=== PATIENT | male | born 1955 | race Caucasian/White ===

== ENCOUNTER 2018-04-13 13:57 | Inpatient (IN) | payer MEDICAID ==
[~2018-04-13] VITALS: Ht 180.3 cm; Wt 128.6 kg
[2018-04-13 14:40] LABS: Urine WBC None Seen /hpf (0 - 3)
[2018-04-13 14:59] LABS: Basophils # (auto) 0 uL; Basophils % (auto) 0.5 % (0.0-2.0); Eosinophils # (auto) 0.2 uL; Eosinophils % (auto) 2.8 % (0.0-7.0); Hematocrit 39.3 % (41.0-53.0); Hemoglobin 13.5 g/dL (13.5-17.5); Lymphocytes # (auto) 1.6 uL; Mean Corpuscular Hemoglobin 32.1 pg (28.0-32.0); Mean Corpuscular Hgb Conc. 34.4 g/dL (32.0-36.0); Mean Corpuscular Volume 93.3 fL (80.0-100.0); Monocytes # (auto) 1.1 uL; Monocytes % (auto) 12.9 % (0.0-12.0); Neutrophils # (auto) 5.8 uL; Neutrophils % (auto) 65.8 % (37.0-80.0); Nucleated Red Blood Cells % 0.1 %; Platelet Count (auto) 277 10^3/uL (140-450); Red Blood Cells 4.22 10^6/uL (4.5-5.90); White Blood Cell 8.9 10^3/uL (4.4-10.8)
[2018-04-13 15:11] LABS: Urine Bacteria NONE SEEN /hpf (None Seen); Urine Blood Negative /uL (Negative); Urine Specific Gravity 1.018 (1.001-1.035)
[2018-04-13 15:14] LABS: INR 0.94 (0.9-1.15); Partial Thromboplastin Time 28.5 sec (23.78-33.04); Prothrombin Time 10.1 sec (9.27-12.13)
[2018-04-13 15:31] LABS: Albumin 3.7 g/dL (3.4-5.0); Calcium 8.8 mg/dL (8.5-10.1); Potassium 3.9 mmol/L (3.5-5.1)
[2018-04-13 15:45] LABS: BUN/Creatinine Ratio 12.3
[2018-04-13 15:47] LABS: Bilirubin, Total 0.4 mg/dL (0.2-1.0); Total Protein 7.3 g/dL (6.4-8.2)
[2018-04-13] MEDS ORDERED: SODIUM CHLORIDE 0.9% 1,000 ML IVB ONE (16:56)
[2018-04-13] MEDS ORDERED: PROMETHAZINE HCL 25 MG/ML 1ML IV PRN (17:00)
[2018-04-13] MEDS ORDERED: MEPERIDINE HCL (25 MG/ML) 1ML VIAL IV ONE (17:00)
[2018-04-13] MEDS ORDERED: PROMETHAZINE HCL 25 MG/ML 1ML ONE (17:08)
[2018-04-13] MEDS ORDERED: PROMETHAZINE HCL 25 MG/ML 1ML IV ONE (17:30)
[2018-04-13] MEDS ORDERED: LORazepam 0.5 MG TAB PO PRN (18:30)
[2018-04-13] MEDS ORDERED: NITROGLYCERIN 0.4 MG SL TAB SL PRN (18:30)
[2018-04-13] MEDS ORDERED: ONDANSETRON HCL 4 MG/2 ML VIAL IV PRN (18:30)
[2018-04-13] MEDS ORDERED: cefTRIAXone 1GM/10ml IVPUSH 10 ML IV ONE (18:30)
[2018-04-13] MEDS ORDERED: HYDROcodone-ACET 5/325MG TAB PO PRN (18:30)
[2018-04-13] MEDS ORDERED: TEMAZEPAM 15 MG CAP PO PRN (18:30)
[2018-04-13] MEDS ORDERED: ACETAMINOPHEN 500 MG TAB PO PRN (18:30)
[2018-04-13] MEDS: KETOROLAC TROMETH 30 MG/ML 1ML VIAL IV PRN (19:32)
[2018-04-13 20:23] VITALS: BP 136/76
[2018-04-13 20:45] VITALS: BP 127/65
[2018-04-13] MEDS: FAMOTIDINE 20 MG TAB PO SCH (22:27)
[2018-04-13 23:49] LABS: INR 0.99 (0.9-1.15); Prothrombin Time 10.6 sec (9.27-12.13)
[2018-04-14] MEDS: KETOROLAC TROMETH 30 MG/ML 1ML VIAL IV PRN ×2 (02:18→09:36)
[2018-04-14] MEDS: SODIUM CHLORIDE 0.9% 1,000 ML IV SCH ×3 (02:19→14:16)
[2018-04-14 05:00] VITALS: BP 118/69
[2018-04-14 07:24] LABS: Potassium 4.1 mmol/L (3.5-5.1)
[2018-04-14 07:31] LABS: Albumin 3.2 g/dL (3.4-5.0); BUN/Creatinine Ratio 11.7; Calcium 8.1 mg/dL (8.5-10.1)
[2018-04-14 07:34] LABS: Bilirubin, Total 0.4 mg/dL (0.2-1.0); Total Protein 6.6 g/dL (6.4-8.2)
[2018-04-14] MEDS ORDERED: ENAL2.5T PO (07:58)
[2018-04-14] MEDS ORDERED: ALPR2TAB8 PO (07:58)
[2018-04-14] MEDS ORDERED: ASPI325T25 PO (07:58)
[2018-04-14] MEDS ORDERED: BUSP15TA60 PO (07:58)
[2018-04-14] MEDS ORDERED: LAMO200T34 PO (07:58)
[2018-04-14] MEDS ORDERED: BUPR300T28 PO (07:58)
[2018-04-14 09:00] VITALS: BP 117/62
[2018-04-14] MEDS: cefTRIAXone 1GM/10ml IVPUSH 10 ML IV SCH (09:34)
[2018-04-14] MEDS: FAMOTIDINE 20 MG TAB PO SCH ×2 (09:34→21:12)
[2018-04-14] MEDS ORDERED: MANNITOL FTV 25% 12.5 GM/50 ML 50 ML IV ONE (10:15)
[2018-04-14 13:00] VITALS: BP 122/67
[2018-04-14] MEDS ORDERED: IODIXANOL 320MG/ML 100ML BTL IV ONE (13:22)
[2018-04-14] MEDS ORDERED: LIDOCAINE 2% (LOCAL ANESTH.) PF 5ml SDV ONE (13:22)
[2018-04-14] MEDS ORDERED: MIDAZOLAM HCL 1MG/1ML-2 ML VIAL ONE (15:13)
[2018-04-14] MEDS ORDERED: fentaNYL CITRATE 100 MCG/2 ML VL ONE (15:13)
[2018-04-14 17:00] VITALS: BP 123/65
[2018-04-14 21:51] VITALS: BP 121/68
[2018-04-15] MEDS: SODIUM CHLORIDE 0.9% 1,000 ML IV SCH (00:16)
[2018-04-15 05:24] VITALS: BP 142/80
[2018-04-15 09:00] VITALS: BP 156/74
[2018-04-15] MEDS: FAMOTIDINE 20 MG TAB PO SCH (09:56)
[2018-04-15] MEDS: cefTRIAXone 1GM/10ml IVPUSH 10 ML IV SCH (09:56)
[2018-04-15 13:00] VITALS: BP 151/85
== END 2018-04-15 13:58 | disposition home or self-care (01) | DRG 465 ==
LOC: ER 13:57 → TELE 13:58 → TELE-CENTR 20:45
PROVIDERS: ADMIT Internal Medicine; ATTEND Internal Medicine Pulmonary Disease
PROC: 5A09357 Assistance with Respiratory Ventilation, Less than 24 Consecutive Hours, Continuous Positive Airway Pressure (ICD-10-PCS; principal; 2018-04-13)
DX: N13.2 Hydronephrosis with renal and ureteral calculous obstruction (principal); N17.0 Acute kidney failure with tubular necrosis; K76.0 Fatty (change of) liver, not elsewhere classified; E66.9 Obesity, unspecified; G47.30 Sleep apnea, unspecified; I70.8 Atherosclerosis of other arteries; I10 Essential (primary) hypertension; E78.5 Hyperlipidemia, unspecified; K57.30 Diverticulosis of large intestine without perforation or abscess without bleeding; Z68.39 Body mass index [BMI] 39.0-39.9, adult; Z88.5 Allergy status to narcotic agent; Z82.49 Family history of ischemic heart disease and other diseases of the circulatory system; Z87.442 Personal history of urinary calculi; Z90.49 Acquired absence of other specified parts of digestive tract
CPT/HCPCS: 36415; 71045; 74176; 76942; 80053; 81001; 83735; 85025; 85610; 85730; 86850; 86900; 86901; 87081; 94660; 94761; 96361; 96374; 96375; 99152; A6257; J0696; J1885; J2001; J2250; J2405; Q9967

== ENCOUNTER → 2023-06-16 | Outpatient (CLI) | payer OTHER ==
[~2023-06-16] MED LIST: ALPR2TAB8 PO; ASPI325T25 PO; BUPR300T28 PO; BUSP15TA60 PO; ENAL1TAB42 PO; LAMO200T34 PO
== END | disposition home or self-care (01) ==
LOC: Rad HDHVI 14:48
PROVIDERS: ATTEND Internal Medicine Cardiovascular Disease
DX: I08.0 Rheumatic disorders of both mitral and aortic valves (principal); I11.9 Hypertensive heart disease without heart failure
CPT/HCPCS: 93306

== ENCOUNTER → 2023-06-22 | Outpatient (CLI) | payer OTHER ==
[~2023-06-22] VITALS: Ht 180.3 cm; Wt 95.3 kg
[~2023-06-22] MED LIST changes: +ADENOSINE 80 MG in GIVE UN-DILUTED 0 ML IV ONE; +ADENOSINE 90 MG/30 ML INJ IV ONE
== END | disposition home or self-care (01) ==
LOC: Rad HDHVI 13:38
PROVIDERS: ATTEND Internal Medicine Cardiovascular Disease
DX: I10 Essential (primary) hypertension (principal); E11.9 Type 2 diabetes mellitus without complications; E78.00 Pure hypercholesterolemia, unspecified; J44.9 Chronic obstructive pulmonary disease, unspecified
CPT/HCPCS: 78452; 93005; 96374; 96375; A9500; J0153